=== PATIENT | female | born 1985 | race Caucasian/White ===

== ENCOUNTER 2018-04-29 13:48 | Emergency (ER) | payer SELFPAY ==
[~2018-04-29] VITALS: Ht 160 cm; Wt 61.2 kg
[2018-04-29 14:43] VITALS: Ht 160 cm; Wt 61.2 kg
[2018-04-29 18:36] LABS: BASOPHIL % 0.7 % (0-2); PLATELET COUNT 229 x10^3mcL (130-400)
[2018-04-29 18:40] LABS: RED CELL DISTRIBUTION WIDTH 16.1 % (11.5-14.5)
[2018-04-29 20:27] VITALS: BP 105/76
== END 2018-04-29 20:27 | disposition home or self-care (01) ==
LOC: ED 13:48
PROVIDERS: Emergency Medicine
DX: N93.9 Abnormal uterine and vaginal bleeding, unspecified (principal); M54.5 Low back pain; Z88.6 Allergy status to analgesic agent
CPT/HCPCS: 36415